=== PATIENT | female | born 1985 | race Caucasian/White ===

== ENCOUNTER 2020-04-22 09:36 | Inpatient (IN) | payer BC ==
[2020-04-22] MEDS ORDERED: miSOPROStoL 100 MCG TAB VAG PRN (15:45)
[2020-04-22] MEDS ORDERED: BUTORPHANOL 1 MG/ML INJ IV PRN (15:51)
[2020-04-22] MEDS ORDERED: Ringers Lactate 1,000 ML IV PRN (15:51)
[2020-04-22] MEDS ORDERED: METHYLERGONOVINE 0.2MG/ML AMP IM PRN (15:51)
[2020-04-22] MEDS ORDERED: CARBOPROST TROME 250 MCG/ML IM PRN (15:51)
[2020-04-22] MEDS ORDERED: PROMETHAZINE INJ 25 MG/ML AMP IM PRN (15:51)
[2020-04-22] MEDS ORDERED: Ringers Lactate 1,000 ML IV SCH (16:00)
[2020-04-22] MEDS ORDERED: OXYTOCIN/LR 20 UNIT/1,000 ML BAG IV SCH (16:00)
[2020-04-22] MEDS ORDERED: miSOPROStoL 100 MCG TAB ONE (16:04)
[2020-04-22 16:18] LABS: Basophils % 0.4 % (0-1.3); Hematocrit 35.7 % (36.0-45.0); Lymphocytes % 20.3 % (15.3-44.8); MPV 10.8 fL (7.6-11.3); RBC Red Blood Cell Count 3.91 M/uL (3.86-4.86); Urine Appearance TURBID; Urine Bilirubin NEGATIVE (NEG); Urine Blood NEGATIVE (NEG); Urine Color YELLOW; Urine Glucose NEGATIVE (NEG); Urine Protein NEGATIVE (NEG); Urine Specific Gravity 1.015 (1.005-1.030); Urine Urobilinogen 0.2 mg/dL (0.2-1.0)
[2020-04-22 16:19] LABS: Urine Microscopic Reflex ORDER UMIC
[2020-04-22 16:30] LABS: Urine Bacteria <20 /HPF (<20); Urine RBC <5 /HPF (NONE SEEN)
[2020-04-22 16:43] VITALS: BMI 30.2
[2020-04-22] MEDS ORDERED: ZOLPIDEM TARTRATE 5 MG TABLET PO PRN (16:57)
--- NOTE | 2020-04-22 20:32 | PREOPHP ---
Date of Admission: 04/22/2020 History Of Present Illness: This is a 35-year-old 4, para 2, 39 weeks gestation, followed an tepartum without complications. Rh negative. She received RhoGAM. Beta strep negative. Rubella im mune. For Cytotec induction. Full preadmission talk about hypertonic contractions, increased risk f or and other risk of complications associated with inducing with the cervix is not extremely favorable. The patient wishes to proceed. Family History: Not really contributory. She has a grandfather with diabetes. Otherwise basically negative. Past Surgical History: She has had no surgery. Allergies: SHE HAS NO ALLERGIES. Social History: She does not smoke. Has been taking vitamins. Physical Examination: HEENT: Clear. Pupils equal, round, reactive to light and accommodation. Conjunctivae well perfused . No oral, lingual, or buccal lesions. Chest and Lung: Clear. Heart: Without murmurs, thrills, heaves, or rubs. Breasts: Not examined, but on previous visits without masses. Abdomen: Baby is vertex, is still ba sically floating. Cervix is fingertip, 50%, soft and anterior. Extremities: Clear without edema, cyanosis, or clubbing. Cytotec 50 mcg inserted. We will insert a nother tablet either 25/50 mcg in 6 hours and then a third if needed. She knows this is a preparatio n process and true labor probably will begin sometime tomorrow, although it could begin tonight. Full admission and labor talk given. MURALI/SHANE Voice ID: [id number]
[2020-04-22 22:23] LABS: RPR (Rapid Plasma Reagin) NON-REACT (NON-REACT)
[2020-04-23] MEDS ORDERED: LIDOCAINE 1% MPF 30 ML VIAL ONE (03:11)
[2020-04-23] MEDS ORDERED: METHYLERGONOVINE 0.2MG/ML AMP IM ONE ×2 (03:11→06:04)
[2020-04-23] MEDS ORDERED: TERBUTALINE SULF 1 MG/1ML ONE (05:21)
[2020-04-23] MEDS ORDERED: CEFAZOLIN/SWI 2gm 2 GM/20 ML SYR ONE ×2 (05:44→13:10)
[2020-04-23] MEDS ORDERED: propofoL 200 MG/20 ML VIAL IV ONE (05:52)
[2020-04-23] MEDS ORDERED: Phenylephrine HCl 10 MG/ML 1 ML VIAL ONE (06:06)
[2020-04-23] MEDS ORDERED: FENTANYL CITR 250 MCG/5 ML ONE (06:07)
[2020-04-23 07:10] LABS: Hematocrit 27.5 % (36.0-45.0); Lymphocytes % 7.4 % (15.3-44.8); MPV 9.4 fL (7.6-11.3); RBC Red Blood Cell Count 2.96 M/uL (3.86-4.86)
[2020-04-23 07:11] LABS: Absolute Lymphocytes (CBC) 1.5 K/uL (0.7-4.9); Basophils % 0.1 % (0-1.3)
--- NOTE | 2020-04-23 07:19 | OP ---
Surgeon: Eliceo Mullins MD Saray Collins, 35-year-old 4, para 2, 39 weeks, had Cytotec inserted yesterday afternoon, fo llowed by 2 additional doses every 6 hours. This morning, I was called and told the patient was 5-6 cm but was having deep decelerations for the last 20 minutes prior to me being called. The nurse had given the patient oxygen, increased IV rate, put the patient on the left side, but decelerations con tinued. When I arrived, the patient was 8.5 cm. There was light bleeding but nothing dramatic durin g deep decelerations to 80 beats per minute but recovery within 60 seconds. Anesthesia and Pediatric s were called. During that time, there was an attempt to try to get the patient to push to see if sh e can get the cervix dilated and deliver the baby vaginally, but that did not work. The patient was taken to Surgery prepping and draping, the general anesthetic was performed by Dr. Elmore. The patient was given 2 g of Ancef for prophylaxis. An estimated 7-1/2 to 8 [address] was delivered[address] Dr[address] Wilfredo de la garza on attendance. Apgars 3 at 1 minute, 5 at 5 minutes, and 8 at 10 minutes. Baby is in amaya sery now, seems to be doing quite well. After Pfannenstiel incision, the uterus was opened and there were noted to be large clots. The placenta was removed. The uterus was exteriorized. The lower ut erine segment was very edematous and anatomic identification was difficult. The uterus was closed in 2 layers of running locked 1 chromic, 2-3 [id number]-[id number] stitches were placed along the suture line for complete hemostasis. Estimated blood loss 5651-2896 cc. Methergine 0.2 mg given. Type and asbestos microscopist ss for 4 units of blood offered. The fascia was closed with 1 Vicryl and 2-0 plain was placed in sub cutaneous tissue. [place] were used for the skin. The patient's pulse at this time is 113 and conju nctivae look reasonable but we have a stat H and H and probably will need to give the patient a coupl e of units of blood. She is awakening at this point from her general anesthetic and will be transfer red back to her room. Final Diagnoses: Term intrauterine Cytotec for cervical ripening, placental abruption, bao arean section, low transverse cervical, general anesthetic. NBC/MODL Voice ID: [id number] Report ID: [id number]
--- NOTE | 2020-04-23 08:34 | PN ---
Output is on the low side. Her lochia is normal, but blood pressures continuing to be in the 100 to 80 range. Pulse is in the 120 range. I think the patient is going to need 1 unit of blood. We had fingerstick, hematocrit pending and they are ordered right now, but I am going to get the first unit of blood. I think it is clinically indicated. MURALI/SHANE Voice ID: [id number] Report ID: [id number]
[2020-04-23] MEDS ORDERED: MORPHINE 4 MG/ML SYR IM ONE (08:54)
[2020-04-23] MEDS ORDERED: KETOROLAC 30 MG/ML INJ ONE (09:05)
[2020-04-23] MEDS ORDERED: NA CHLORIDE 0.9% 500 ML ONE (09:06)
[2020-04-23 09:08] LABS: Blood Morphology Comment NOT SEEN (NOT SEEN); Platelet Estimate DECR
[2020-04-23] MEDS ORDERED: MORPHINE 4 MG/ML SYR ONE (09:13)
[2020-04-23] MEDS ORDERED: MORPHINE 4 MG/ML SYR IV ONE (09:15)
[2020-04-23] MEDS ORDERED: NALOXONE 0.4 MG/ML VIAL IV PRN (09:30)
[2020-04-23] MEDS ORDERED: ONDANSETRON 4 MG/2 ML VIAL IV PRN (09:30)
--- NOTE | 2020-04-23 12:34 | PN ---
First unit of blood is just about completed. The patient looks much better. Her color is better. S he is alert. Output is good and is starting to increase and the urine is showing as less concentrate d. Lochia has been normal. We will give her 2 units of blood and then assess the situation. She kn ows if any internal bleeding is going on or she has to be re-operated barring some severe emergency, I will probably send her to high-risk center. Baby has been transferred, but they said that they thi nk the baby only needs CPAP and probably can go home in 48 hours. Right now, everything is looking g ood from that standpoint. Full discussion with the patient's . MURALI/SHANE Voice ID: [id number] Report ID: [id number]
[2020-04-23] MEDS ORDERED: D5LR 1,000 ML with OXYTOCIN 20 UNIT IV SCH ×2 (13:30)
[2020-04-23] MEDS: MORPHINE 4 MG/ML SYR IV PRN ×3 (15:30→23:22)
[2020-04-23] MEDS ORDERED: Rho(D) IG (HUMAN) 300 MCG SYR IM ONE (22:36)
[2020-04-23] MEDS ORDERED: ACETAMINOPHEN 500 MG TAB PO PRN (22:59)
[2020-04-24] MEDS ORDERED: NA CHLORIDE 0.9% 500 ML ONE (07:19)
--- NOTE | 2020-04-24 07:26 | PN ---
I have ordered a CAT scan to check for free fluid in the peritoneal cavity. I have also ordered IVP to make sure that the left ureter has not been kinked. The urine is absolutely clear and looks good. She is not having any flank pain, but this has been a precautionary measure since we are getting th e CAT scan anyway. I have discussed with the patient's that if she has internal bleeding con tinuing that I think that we need to effect transfer to [facility]. I have talked to the [facility]' transfer people already, and Dr. Ishaan Ji is aware of the situation. If the CAT scan does not show any significant internal bleeding and the IVP is negative, then we will give patient 2 more units and keep her here. She looks quite stable as I have said, and this blood count drop is surpri sing, but I think that the initial bleeding episode was probably more than 2 units would have correct ed, but we will see what the imaging shows. MURALI/SHANE Voice ID: [id number] Report ID: [id number]
[2020-04-24] MEDS: MORPHINE 4 MG/ML SYR IV PRN (08:15)
--- NOTE | 2020-04-24 08:23 | RAD REPORT ---
EXAM DESCRIPTION: CT - Abdomen Pelvis W Contrast - 04/24/2020 7:53 am CLINICAL HISTORY: r/o internal bleeding; L ureter status COMPARISON: OB Complete dated 02/28/2020 TECHNIQUE: Biphasic, helical CT imaging of the abdomen and pelvis was performed following 100 ml non -ionic IV contrast. There are delayed images of the system at 10 minutes. No oral contrast administered. All CT scans are performed using dose optimization technique as appropriate and may include automated exposure control or mA/KV adjustment according to patient size. FINDINGS: Small bilateral pleural effusions are present with lung base atelectasis. No pericardial e ffusion. With The liver, spleen, and pancreas show no suspicious findings. Gallbladder and biliary tree are also wi thout suspicious finding. Symmetric renal function is present without delay. The ureters are fully opacified down to the UVJ le blade. There is no extravasation or evidence for ureteral injury. Urinary bladder is contracted around a Orr catheter. Mild dilatation of the right side pelvis and calices. Nonobstructing calculus noted on the right. No pyelonephritis or acute parenchymal process. No adrenal abnormalities. No dilated bowel loops or bowel wall thickening. No acute GI process identified. Intraperitoneal fluid and blood are present. A 4 centimeter hematoma is seen in the left lower quadra nt. Enlarged uterus is present. Focal thinning or defect of the myometrium is present in the left lat eral lower uterine segment. This communicates with the endometrial cavity. No active extravasation of IV contrast seen. Fluid and stranding are present in the peritoneal cavity. Postsurgical changes are present along the anterior lower pelvis from . There is the normal amount of air in the subcutaneous fatty tissues and along the anterior abdominal wall. Findings discussed with the referring physician 8:10 a.m.. IMPRESSION: No evidence for ureteral injury. No extravasation from the system. No active extravasation of IV contrast from the lower uterine surgical site. There is substantial thi nning of the myometrium along the left lateral lower uterine segment probably part of the abruption a nd subsequent and surgical repair. Fluid and stranding are present in the peritoneal cavity with a 4 centimeter sized hematoma in the le ft lower quadrant. Quantity is probably not sufficient for any significant change in H & H.
--- NOTE | 2020-04-24 08:53 | PN ---
CT scan with IVP follow-through shows no problem with the ureters or bladder. There is no significan t amount of free fluid in the peritoneal cavity. She has a hematoma that is 4 cm on the left side, b ut no free bleeding from that point according to Dr. Lomas. Patient looks better than yesterday fo r sure. I tend not believe the hematocrit this morning, but we will give patient 2 units of blood, b egin walking in the room, and if she is stable by this afternoon, we will probably remove the Orr, keep the IV until we are absolutely sure that we will not need it again. Lochia still very normal. The patient is quite alert and not reporting any significant pain. Full discussion with patient and . MURALI/SHANE Voice ID: [id number] Report ID: [id number]
[2020-04-24] MEDS ORDERED: Oxycodone HCl/Acetaminophen 1 TAB TAB PO PRN (11:09)
[2020-04-24] MEDS: Oxycodone HCl/Acetaminophen 1 TAB TAB PO PRN ×3 (11:10→22:35)
[2020-04-24] MEDS ORDERED: MAGNESIUM HYDROXIDE 8% 30 ML PO PRN (14:37)
[2020-04-24 16:53] LABS: Hematocrit 28.3 % (36.0-45.0)
[2020-04-25] MEDS: Oxycodone HCl/Acetaminophen 1 TAB TAB PO PRN (04:43)
[2020-04-25 07:37] VITALS: BP 113/61; TEMP 98
--- NOTE | 2020-04-25 07:59 | DS ---
Hospital Course: Saray Collins is a 35-year-old 4, para 2, 39 weeks. Had Cytotec 1 tablet 50 mcg inserted. 12 hours later, the patient's baby started experiencing deep decelerations that did not respond to positioning hydration or oxygen. I was called. The patient was 5-6 cm when I was ca lled. When I got here, she was 8-8.5. There was a light amount of bleeding, but nothing dramatic. Surgical crew, and pediatrics were called and mean time the patient went to 9 cm and we tried to get her to push, it maybe deliver the baby before we could perform but that was unsuccessful. T he patient was taken to surgery. Crash induction was performed. She was delivered of approximate 7 pounds female. Traumatic abruption was noted of the placenta. Baby's Apgars 3, 5 and 8 at 1, [address] Bowman in pediatric attendance. Estimated blood loss at time of surgery 1700 c c. 4 units of blood were ordered and the first 2 units were given shortly after surgery. 2 g of Anc ef before and after surgery were ordered. Baby was subsequently transferred to [facility] they said the baby was doing well, but on room air, but needed assisted ventilation. No signs of any neurological problems. Postoperatively, the patient received 2 more units of blood. Her hematoc rit is now at 28. The patient is quite stable. She is ambulating and voiding without difficulty. A CT scan with IVP follow-through was performed showing no significant intraperitoneal bleeding, a sma ll hematoma, but the ureters and bladder intact. The patient is dismissed to return to my office on Monday of next week, to report any temperature elevation of 100 degrees or greater, severe pain, h eavy bleeding, or any other type of abnormalities. She is Rh negative. She has received RhoGAM. Sh e had her Tdap immunization. Right now, we will forego flu shot. Tramadol given for analgesia. She knows this goes through the breast milk. Final Diagnoses: Term intrauterine , Cytotec for cervical ripening, major placental abrupti on, primary section, blood transfusion total of 4 units. MURALI/MODL Voice ID: [id number] Report ID: [id number]
--- NOTE | 2020-04-27 11:44 | PN ---
After 2 units of blood, the patient's blood pressure improved. Her pulse went down, but this morning , hematocrit is 21. The patient looks same as she did yesterday. Her abdomen is slightly tender. S he is having some slight discomfort in her left shoulder area. We will get a CT scan and an IVP to abdoul bower on the ureter on the left, and see if there is any more than expected free fluid in the abdomen. I have discussed with this patient's that if we see free fluid, she might need reoperation, and I think I would consider transfer to [facility], so that they can assemble a team that would be more complete than I can assemble here. Full discussion. We will see what the CAT scan shows, an d I have ordered 2 units of blood to be given. MURALI/SHANE Voice ID: [id number] Report ID: [id number]
[2020-04-28 18:29] LABS: HBsAG Nonreactive (Nonreactive)
== END 2020-04-25 09:10 | disposition home or self-care (01) | DRG 788 ==
LOC: 2ND-WC 15:38
PROVIDERS: ADMIT Specialist; ATTEND Specialist
PROC: 10D00Z1 Extraction of Products of Conception, Low, Open Approach (ICD-10-PCS; principal; 2020-04-23)
PROC: 3E0P7VZ Introduction of Hormone into Female Reproductive, Via Natural or Artificial Opening (ICD-10-PCS; 2020-04-23)
PROC: 30233N1 Transfusion of Nonautologous Red Blood Cells into Peripheral Vein, Percutaneous Approach (ICD-10-PCS; 2020-04-23)
DX: O26.893 Other specified pregnancy related conditions, third trimester (principal); O45.93 Premature separation of placenta, unspecified, third trimester; O76 Abnormality in fetal heart rate and rhythm complicating labor and delivery; Z67.91 Unspecified blood type, Rh negative; Z3A.39 39 weeks gestation of pregnancy; Z37.0 Single live birth
CPT/HCPCS: 36415; 36430; 74177; 81003; 81015; 85014; 85018; 85025; 85461; 86592; 86850; 86870; 86900; 86901; 87340; 88307; 94010; J0595; J0690; J2210; J2370; J2550; J2590; J2704; J2790; J3010; J3105; J7040; J7120; J7121; P9016; Q9967; U0003